=== PATIENT | male | born 1965 | race Caucasian/White ===

== ENCOUNTER 2021-01-04 10:13 | Outpatient (CLI) | payer BC ==
[2021-01-04 23:42] LABS: SARS-CoV-2 PCR by NAA Not Detected (NotDetected)
== END 2021-01-04 10:14 | disposition home or self-care (01) ==
LOC: CSHLAB 10:13
PROVIDERS: ATTEND Internal Medicine Gastroenterology
DX: Z20.822 Contact with and (suspected) exposure to COVID-19 (principal); Z12.11 Encounter for screening for malignant neoplasm of colon
CPT/HCPCS: 87635; U0003; U0005

== ENCOUNTER 2021-01-06 08:29 | Day surgery (SDC) | payer BC ==
[2021-01-04 15:54] VITALS: BMI 28.7
[2021-01-06] MEDS ORDERED: Lidocaine 1% MPF 2 ML VIAL ONE (08:52)
[2021-01-06] MEDS ORDERED: PROPOFOL 40 ML ONE (10:39)
[2021-01-06] MEDS ORDERED: Lidocaine 1% PF 5 ML VIAL ONE (10:41)
== END 2021-01-06 12:15 | disposition home or self-care (01) ==
LOC: CSHSDC 08:29
PROVIDERS: ATTEND Internal Medicine Gastroenterology
DX: Z12.11 Encounter for screening for malignant neoplasm of colon (principal); K63.5 Polyp of colon; K57.30 Diverticulosis of large intestine without perforation or abscess without bleeding; K64.9 Unspecified hemorrhoids
CPT/HCPCS: 88305; J2704

== ENCOUNTER 2024-10-10 10:35 | Outpatient (CLI) | payer BC | END 2024-10-10 10:36 | disposition home or self-care (01) | LOC: CSHCT 10:35 | PROVIDERS: ATTEND Nurse Practitioner Family | DX: R31.9 Hematuria, unspecified (principal); N20.0 Calculus of kidney; N39.8 Other specified disorders of urinary system; I71.40 Abdominal aortic aneurysm, without rupture, unspecified; I70.0 Atherosclerosis of aorta | CPT/HCPCS: 74176 ==